=== PATIENT | female | born 1950 | race Caucasian/White ===

== ENCOUNTER 2017-01-17 07:51 | Day surgery (SDC) | payer OTHER ==
[~2017-01-17] VITALS: Ht 165.1 cm; Wt 73.5 kg
[~2017-01-17 07:51] MED LIST: ADVAIR 250-501 EACH INH; ALBUTEROL2.5 MG/3 M; BETAMETHASONE D15 G2 TOP; LIPITOR40 MG PO; SPIRIVA18 MCG INH
--- NOTE | 2017-01-17 10:34 | NUR ---
01/17/17 1034 Rosemarie Chiu 1026 PATIENT ARRIVES TO PACU AWAKE, ALERT AND ORIENTED X3. ANSWERING QUESTIONS APPROPRIATELY. RESP EVEN AND UNLABORED. NC AT 2 LITERS. C/O MILD CRAMPING. 1030 PATIENT ON ROOM AIR.
--- NOTE | 2017-01-19 12:15 | OR ---
[facility] [address] [place], [place] [address] Signed DATE OF PROCEDURE: 01/17/17 PREOPERATIVE DIAGNOSIS: History of hyperplastic polyps, 2004. POSTOPERATIVE DIAGNOSIS: Polyps x4. PROCEDURE Total colonoscopy to cecum with hot snare polypectomy with mucosal lift technique (Endo cristian tattoo) of sigmoid polyp and cold morcellation excision of 3 additional polyp. SURGEON: Nelson Miranda MD ANESTHESIA: Intravenous sedation Fentanyl 150 mcg, Versed 6 mg. INDICATION This 66-year-old white woman is a patient Dr. Aviles and underwent colonoscopy by me in 2004 at which time, she was found to have a hyperplastic polyp. She is symptom-free at this time and she has no family history of colon cancer. She is admitted for screening colonoscopy. Understand the risks of bleeding, infection, and perforation. FINDINGS The prep was excellent. Complete colonoscopy was undertaken of the cecum. There was 1 somewhat a more of a sessile polyp at the sigmoid colon, which was excised with hot snare polypectomy technique after mucosal lift using Endo cristian tattoo dye. Complete excision was afforded. The other polyps were excised with cold morcellation technique. One at the rectosigmoid and another at 60 cm and another at the hepatic flexure. The hepatic flexure tissue may not really been a polyp but rather hypertrophied mucosa. We await that determination. PROCEDURE IN DETAIL The patient brought to the endoscopy suite and placed in lateral decubitus position. Given intravenous sedation to the point of slurred speech and nystagmus. Digital rectal examination was normal. An Olympus video colonoscope was passed in the rectum and manipulated throughout the colon. The scope was ultimately passed into the cecum, the ileocecal valve, and the appendiceal orifice was normal. Scope was withdrawn from that point and at the hepatic flexure, was a prominent fold. Narrow band imaging did not clearly identify adenomatous change, but it was thicker than other folds and uncertain if it may have hypertrophy or adenomatous change. On that basis, cold morcellation biopsies were obtained. The scope was further withdrawn, and at about 60 cm from the anal verge was a small sessile polyp. This was excised with cold morcellation technique. Further withdrawal of scope showed Electronically Signed By: NELSON MIRANDA MD 01/19/17 1215 PATIENT NAME: JOAN HUGHES OPERATIVE REPORT DATE OF : 54 PHYSICIAN: NELSON MIRANDA MD REPORT #: [id number] REPORT IS CONFIDENTIAL AND NOT TO BE RELEASED WITHOUT AUTHORIZATION [facility] [address] [place], [place] [address] Signed amorphous clearly adenomatous polyp in the sigmoid. Given its configuration, a mucosal lift technique was deemed most appropriate. This was accomplished with an Endo cristian tattoo dye and hot snare polypectomy technique. A Garcia net was used to retrieve the polyp. Further withdrawal of scope showed a small polyp at the rectosigmoid, which was excised with cold morcellation technique. Retroflexed view of the rectum was normal. Scope was removed and the patient was taken to recovery room in good condition. CONCLUDING DIAGNOSIS Polyps x3, possible adenomatous changes at the hepatic flexure incompletely excised. PLAN We will check pathology report. Repeat in 3 years would be appropriate based on current information. This may be modified depending on the pathologic findings. Nelson Miranda MD JM/Modl /[id number] cc: Fazal Aviles MD Electronically Signed By: NELSON MIRANDA MD 01/19/17 1215 PATIENT NAME: JOAN HUGHES Michael OPERATIVE REPORT DATE OF : 54 PHYSICIAN: NELSON MIRANDA MD REPORT #: [id number] REPORT IS CONFIDENTIAL AND NOT TO BE RELEASED WITHOUT AUTHORIZATION
== END 2017-01-17 11:00 | disposition home or self-care (01) ==
LOC: DS 07:51 → OPS 07:51 → DS 09:00 → OPS 09:00
PROVIDERS: Surgery
PROC: 0DBN8ZX Excision of Sigmoid Colon, Via Natural or Artificial Opening Endoscopic, Diagnostic (ICD-10-PCS; 2017-01-17)
PROC: 3E0H8GC Introduction of Other Therapeutic Substance into Lower GI, Via Natural or Artificial Opening Endoscopic (ICD-10-PCS; 2017-01-17)
PROC: 0DBL8ZX Excision of Transverse Colon, Via Natural or Artificial Opening Endoscopic, Diagnostic (ICD-10-PCS; principal; 2017-01-17 09:00)
DX: Z12.11 Encounter for screening for malignant neoplasm of colon (principal); D12.5 Benign neoplasm of sigmoid colon; K63.5 Polyp of colon; J44.9 Chronic obstructive pulmonary disease, unspecified; Z86.010 Personal history of colon polyps; Z87.891 Personal history of nicotine dependence; Z90.49 Acquired absence of other specified parts of digestive tract; Z98.890 Other specified postprocedural states
CPT/HCPCS: 99152; 99153; J2250; J3010; J7120